=== PATIENT | female | born 1965 | race Asian ===

== ENCOUNTER 2020-09-04 14:57 | Outpatient (CLI) | payer BC | END 2020-09-04 14:58 | disposition home or self-care (01) | LOC: BICULT 14:57 | PROVIDERS: ATTEND Otolaryngology Plastic Surgery within the Head & Neck | DX: E04.2 Nontoxic multinodular goiter (principal) | CPT/HCPCS: 76536 ==

== ENCOUNTER 2021-04-20 09:12 | Outpatient (CLI) | payer BC ==
[2021-04-20] MEDS ORDERED: Magnevist 469MG/ML 20 ML VIAL ONE (12:10)
== END 2021-04-20 09:13 | disposition home or self-care (01) ==
LOC: BICMRI 09:12
PROVIDERS: ATTEND Ophthalmology
DX: H49.21 Sixth [abducent] nerve palsy, right eye (principal)
CPT/HCPCS: 70553; 82565; A9579